=== PATIENT | female | born 1945 | race Caucasian/White ===

== ENCOUNTER 2017-02-09 17:27 | Inpatient (IN) | payer OTHER ==
[~2017-02-09] VITALS: Ht 175.3 cm; Wt 107.9 kg
[~2017-02-09 17:27] MED LIST: ALPR0.5T7 PO; CEPH250C PO; CHLO25TA22 PO; CITA20TA3 PO; GABA-497 PO; INSLANTI SC; LISI30TA36 PO; METO25TA5 PO; NOR10T PO; NORT25CA OR; OMEP20CA74 PO; PRAV20TA3 PO; TIZA4CAP7 PO
[2017-02-09 18:28] LABS: Basophils # (auto) 0 uL; Basophils % (auto) 0.4 % (0.0-2.0); CONDITION Y; Eosinophils # (auto) 0.5 uL; Eosinophils % (auto) 4.3 % (0.0-7.0); Hematocrit 44.9 % (36.0-46.0); Hemoglobin 14.6 g/dL (12.2-16.2); Lymphocytes # (auto) 3.4 uL; Lymphocytes % (auto) 29.3 % (10.0-50.0); Mean Corpuscular Hemoglobin 28.8 pg (28.0-32.0); Mean Corpuscular Hgb Conc. 32.5 g/dL (32.0-36.0); Mean Corpuscular Volume 88.7 fL (80.0-100.0); Mean Platelet Volume 8.3 fL (7.4-10.4); Monocytes # (auto) 0.8 uL; Monocytes % (auto) 6.9 % (0.0-12.0); Neutrophils % (auto) 59.1 % (37.0-80.0); Platelet Count (auto) 489 10^3/uL (140-450); Red Cell Distribution Width 14.9 % (11.6-16.0); White Blood Cell 11.8 10^3/uL (4.4-10.8)
[2017-02-09 18:54] LABS: Albumin 3.1 g/dL (3.4-5.0); Alkaline Phosphatase 215 U/L (45-117); Anion Gap 5 (5-15); Aspartate Aminotransferase 23 U/L (15-37); Bilirubin, Total 0.4 mg/dL (0.2-1.0); Blood Urea Nitrogen 22 mg/dL (7-18); Calcium 9.7 mg/dL (8.5-10.1); Carbon Dioxide 28 mmol/L (21-32); Chloride 106 mmol/L (98-107); GFR African American 42 mL/min; GFR Non-African American 34 mL/min; Glucose 133 mg/dL (74-106); Magnesium 2.7 mg/dL (1.6-2.6); Potassium 4.2 mmol/L (3.5-5.1); Sodium 139 mmol/L (136-145); Total Protein 7.8 g/dL (6.4-8.2)
[2017-02-09 19:37] LABS: Amylase 19 U/L (25-115)
[2017-02-09 19:46] LABS: INR 1.03 (0.9-1.15); Partial Thromboplastin Time 26.8 sec (22.64-33.71); Prothrombin Time 11.2 sec (9.37-12.3)
[2017-02-09 20:00] LABS: B-Type Natriuretic Peptide 49.93 pg/mL (0-100)
[2017-02-09 20:01] LABS: Temperature: 22.8 C (20.0-25.0)
[2017-02-09 21:17] LABS: Urine Bilirubin Negative (Negative); Urine Blood Negative /uL (Negative); Urine Color Yellow (Yellow); Urine Glucose Normal (Normal); Urine Ketone Negative (Negative); Urine Nitrite Negative (Negative); Urine RBC <1 /hpf (0 - 4); Urine Squamous Epithelial Cell FEW /hpf (<5); Urine Urobilinogen Normal (Negative); Urine pH 5.5 (5.0-8.0)
[2017-02-10] MEDS ORDERED: ONDANSETRON HCL 4 MG/2 ML VIAL IV PRN (04:45)
[2017-02-10] MEDS ORDERED: ACETAMINOPHEN 325 MG TAB PO PRN (04:45)
[2017-02-10] MEDS ORDERED: DEXTROSE (50%) 50ML SYRG IV PRN (04:45)
[2017-02-10] MEDS: FUROSEMIDE 20 MG TAB PO SCH ×2 (05:44→17:48)
[2017-02-10] MEDS: ACCU-CHEK COMFORT CURVE STRIP VI SCH ×4 (05:44→23:41)
[2017-02-10] MEDS: InsuLIN REG 1unit/0.01ml Soln (100units/ml) SC SCH ×4 (05:44→23:41)
[2017-02-10] MEDS: PANTOPRAZOLE 40 MG/10 ML VIAL IV SCH (12:00)
[2017-02-10] MEDS: LISINOPRIL 20 MG TAB PO SCH (12:00)
[2017-02-10] MEDS: CITALOPRAM HYDROBR 20 MG TAB PO SCH (12:00)
[2017-02-10] MEDS: METOPROLOL TARTRATE 25 MG TAB PO SCH ×2 (12:00→21:33)
[2017-02-10] MEDS: ENOXAPARIN SOD 40 MG/0.4 ML SYRINGE SC SCH (12:00)
[2017-02-10] MEDS: HYDROcodone-ACET 5/325MG TAB PO PRN ×2 (16:14→22:55)
[2017-02-10 16:40] VITALS: BP 160/76
[2017-02-10] MEDS ORDERED: PRAVASTATIN SODIUM 20 MG TAB PO SCH (22:00)
[2017-02-10 23:09] VITALS: BP 160/65
[2017-02-11 05:13] LABS: Basophils # (auto) 0.1 uL; Basophils % (auto) 0.8 % (0.0-2.0); CONDITION Y; Eosinophils # (auto) 0.6 uL; Eosinophils % (auto) 5.9 % (0.0-7.0); Hematocrit 42.1 % (36.0-46.0); Hemoglobin 13.9 g/dL (12.2-16.2); Lymphocytes % (auto) 40.1 % (10.0-50.0); Mean Corpuscular Hemoglobin 29.2 pg (28.0-32.0); Mean Corpuscular Hgb Conc. 33.1 g/dL (32.0-36.0); Mean Corpuscular Volume 88.4 fL (80.0-100.0); Mean Platelet Volume 8.5 fL (7.4-10.4); Monocytes # (auto) 0.9 uL; Monocytes % (auto) 8.6 % (0.0-12.0); Neutrophils # (auto) 4.4 uL; Neutrophils % (auto) 44.6 % (37.0-80.0); Platelet Count (auto) 396 10^3/uL (140-450); Red Cell Distribution Width 14.6 % (11.6-16.0)
[2017-02-11 05:14] VITALS: BP 142/71
[2017-02-11 05:41] LABS: Albumin 2.9 g/dL (3.4-5.0); BUN/Creatinine Ratio 15.7; Bilirubin, Total 0.4 mg/dL (0.2-1.0); Calcium 8.7 mg/dL (8.5-10.1); Potassium 3.6 mmol/L (3.5-5.1); Total Protein 6.9 g/dL (6.4-8.2)
[2017-02-11] MEDS: FUROSEMIDE 20 MG TAB PO SCH (05:50)
[2017-02-11] MEDS: ACCU-CHEK COMFORT CURVE STRIP VI SCH ×2 (05:51→12:00)
[2017-02-11] MEDS: InsuLIN REG 1unit/0.01ml Soln (100units/ml) SC SCH ×2 (05:51→12:00)
[2017-02-11 08:00] VITALS: BP 131/56
[2017-02-11 08:36] VITALS: BP 131/56
[2017-02-11] MEDS: LISINOPRIL 20 MG TAB PO SCH (10:43)
[2017-02-11] MEDS: ENOXAPARIN SOD 40 MG/0.4 ML SYRINGE SC SCH (10:43)
[2017-02-11] MEDS: METOPROLOL TARTRATE 25 MG TAB PO SCH (10:43)
[2017-02-11] MEDS: PANTOPRAZOLE 40 MG/10 ML VIAL IV SCH (10:44)
[2017-02-11] MEDS: CITALOPRAM HYDROBR 20 MG TAB PO SCH (10:44)
[2017-02-11] MEDS: HYDROcodone-ACET 5/325MG TAB PO PRN (11:39)
[2017-02-11 12:30] VITALS: BP 95/66
[2017-02-11 14:54] VITALS: BP 131/56
== END 2017-02-11 16:07 | disposition home or self-care (01) | DRG 682 ==
LOC: EDBD 17:27 → ER 17:33 → OVERFLOW 17:34 → TELE-E-ADS 02-10 13:40 → WEST WING 02-10 16:07
PROVIDERS: ADMIT Nurse Practitioner; ATTEND Internal Medicine
DX: N17.9 Acute kidney failure, unspecified (principal); G92 Toxic encephalopathy; I26.99 Other pulmonary embolism without acute cor pulmonale; G45.9 Transient cerebral ischemic attack, unspecified; E11.22 Type 2 diabetes mellitus with diabetic chronic kidney disease; F03.90 Unspecified dementia, unspecified severity, without behavioral disturbance, psychotic disturbance, mood disturbance, and anxiety; E11.42 Type 2 diabetes mellitus with diabetic polyneuropathy; W18.39XA Other fall on same level, initial encounter; E66.01 Morbid (severe) obesity due to excess calories; E86.0 Dehydration; I10 Essential (primary) hypertension; G89.4 Chronic pain syndrome; D72.829 Elevated white blood cell count, unspecified; F32.9 Major depressive disorder, single episode, unspecified; N14.1 Nephropathy induced by other drugs, medicaments and biological substances; F41.9 Anxiety disorder, unspecified; E78.5 Hyperlipidemia, unspecified; K21.9 Gastro-esophageal reflux disease without esophagitis; N18.3 Chronic kidney disease, stage 3 (moderate); R79.1 Abnormal coagulation profile; T50.1X5A Adverse effect of loop [high-ceiling] diuretics, initial encounter; T42.8X5A Adverse effect of antiparkinsonism drugs and other central muscle-tone depressants, initial encounter; Z79.4 Long term (current) use of insulin; Z86.73 Personal history of transient ischemic attack (TIA), and cerebral infarction without residual deficits; Z98.1 Arthrodesis status; Z91.81 History of falling; Y93.89 Activity, other specified; Z98.84 Bariatric surgery status; Z87.442 Personal history of urinary calculi; Y92.89 Other specified places as the place of occurrence of the external cause; Y99.8 Other external cause status; Z90.49 Acquired absence of other specified parts of digestive tract; Z90.710 Acquired absence of both cervix and uterus; Z82.49 Family history of ischemic heart disease and other diseases of the circulatory system; Z88.8 Allergy status to other drugs, medicaments and biological substances
CPT/HCPCS: 36415; 51702; 70450; 71010; 78582; 80053; 80307; 80320; 81001; 82150; 82962; 83605; 83690; 83735; 83880; 84484; 85025; 85379; 85610; 85730; 93005; 93886; 93970; 96372; 96374; C9113; J1815